=== PATIENT | female | born 1965 | race Caucasian/White ===

== ENCOUNTER 2017-09-19 11:33 | Emergency (ER) | payer OTHER ==
[2017-09-19] MEDS ORDERED: KETOROLAC 30 MG/ML INJ ONE (12:36)
--- NOTE | 2017-09-19 13:13 | ER ---
Nurse's Notes [facility] Name: Chelita Mancilla Age: 52 yrs Sex: Female : 1965 Arrival Date: 09/19/2017 Time: 11:39 Bed 12 Private MD: Kalia Niño H Diagnosis: Sprain of ankle Presentation: 09/19 12:05 Presenting complaint: Patient states: Patient tripped coming down stairs and twisted ae1 left ankle. Patient reports pain and swelling to left ankle. Transition of care: patient was not received from another setting of care. Onset of symptoms was September 19, 2017 at 12:05. 12:05 Method Of Arrival: Ambulatory ae1 12:05 Acuity: HERIBERTO 4 ae1 13:19 Risk Assessment: Do you want to hurt yourself or someone else? Patient reports no ae1 desire to harm self or others. Initial Sepsis Screen: Does the patient meet any 2 criteria? No. Patient's initial sepsis screen is negative. Does the patient have a suspected source of infection? No. Patient's initial sepsis screen is negative. Care prior to arrival: patient applied bandage. Triage Assessment: 12:07 General: Appears in no apparent distress. uncomfortable, slender, well groomed, ae1 Behavior is calm, cooperative. Pain: Complains of pain in right Achilles, right heel, right ankle, medial aspect of right foot, anterior aspect of right ankle and dorsum of right foot Pain currently is 6 out of 10 on a pain scale. Neuro: Level of Consciousness is awake, alert, obeys commands, Oriented to person, place, time, situation. Respiratory: Airway is patent Respiratory effort is even, unlabored. Derm: Skin is pink, warm \T\ dry. Derm: Wound noted left lateral malleolus Other: Small abrasion to the left lateral ankle. Musculoskeletal: Swelling present in left lateral malleolus. Historical: - Allergies: 12:10 No Known Allergies; ae1 - Home Meds: 12:10 Benadryl Oral nightly [Active]; multivitamin oral cap [Active]; melatonin 5 mg Oral tab ae1 nightly [Active]; - PMHx: 12:10 None; ae1 - PSHx: 12:10 Tubal ligation; ae1 - Immunization history:: Last tetanus immunization: up to date Flu vaccine is up to date. - Social history:: Smoking status: Patient/guardian denies using tobacco. - Ebola Screening: : Patient negative for fever greater than or equal to 101.5 degrees Fahrenheit, and additional compatible Ebola Virus Disease symptoms Patient denies exposure to infectious person. Screenin:19 Abuse screen: Denies threats or abuse. Nutritional screening: No deficits noted. ae1 Tuberculosis screening: No symptoms or risk factors identified. Fall Risk Fall in past 12 months (25 points). No secondary diagnosis (0 pts). No IV (0 pts). Ambulatory Aid- None/Bed Rest/Nurse Assist (0 pts). Gait- Normal/Bed Rest/Wheelchair (0 pts) Mental Status- Oriented to own ability (0 pts). Assessment: 12:30 General: Appears in no apparent distress. comfortable, slender, Behavior is calm, rv cooperative. Pain: Complains of pain in lateral aspect of left toes, left fourth toe, left fifth toe, Left fourth toenail and Left fifth toenail. Neuro: Level of Consciousness is awake, alert, obeys commands, Oriented to person, place, time, situation. Cardiovascular: Pulses are all present. Respiratory: Airway is patent. GI: No signs and/or symptoms were reported involving the gastrointestinal system. : No signs and/or symptoms were reported regarding the genitourinary system. EENT: No signs and/or symptoms were reported regarding the EENT system. Derm: No signs and/or symptoms reported regarding the dermatologic system. Musculoskeletal: Swelling present in left fourth toe, left fifth toe, Left fourth toenail and Left fifth toenail. Injury Description: Abrasion sustained to dorsum of left foot. Vital Signs: 12:06 BP 133 / 88; Pulse 72; Resp 18; Temp 98.1(O); Pulse Ox 100% on R/A; Weight 65.77 kg (R);ae1 ED Course: 11:39 Patient arrived in ED. mr 11:39 Kalia Niño DO is Private Physician. mr 12:06 Triage completed. ae1 12:11 Arm band placed on left wrist. ae1 12:25 Jaylon Cabrera MD is Attending Physician. ps1 12:30 Call light in reach. Adult w/ patient. ae1 13:11 Foot Left 3 View XRAY In Process Unspecified. EDMS 13:11 Tib Fib Left XRAY In Process Unspecified. EDMS 13:12 Kalia Niño DO is Referral Physician. ps1 13:36 No provider procedures requiring assistance completed. Patient did not have IV access ae1 during this emergency room visit. Administered Medications: 12:42 Drug: TORadol 30 mg Route: IM; Site: right deltoid; rv 13:36 Follow up: Response: Pain is decreased ae1 Outcome: 13:13 Discharge ordered by . ps1 13:36 Discharged to home ambulatory, with significant other. ae1 13:36 Condition: stable 13:36 Discharge instructions given to patient, Instructed on discharge instructions, follow up and referral plans. medication usage, Demonstrated understanding of instructions. 13:36 Patient left the ED. ae1 Signatures: Dispatcher [employer] EDMS Bryanna Hammer Andrea, RN RN ae1 Jaylon Cabrera MD MD ps1 Sachin Fraga RN RN rv
--- NOTE | 2017-09-19 13:13 | EDPHYS ---
Physician Documentation [facility] Name: Chelita Mancilla Age: 52 yrs Sex: Female : 1965 Arrival Date: 09/19/2017 Time: 11:39 Bed 12 Private MD: Kalia Niño H ED Physician Jaylon Cabrera HPI: 09/19 12:30 This 52 yrs old Female presents to ER via Ambulatory with complaints of Fall ps1 Injury, Ankle Injury. 12:30 pt missed last step and had eversion injury with abrasion of lateral aspect of right ps1 foot. Pain rated as moderate and worse with ambulation and weight bearing. NV intact and has good distal pulses. . Historical: - Allergies: 12:10 No Known Allergies; ae1 - Home Meds: 12:10 Benadryl Oral nightly [Active]; multivitamin oral cap [Active]; melatonin 5 mg Oral tab ae1 nightly [Active]; - PMHx: 12:10 None; ae1 - PSHx: 12:10 Tubal ligation; ae1 - Immunization history:: Last tetanus immunization: up to date Flu vaccine is up to date. - Social history:: Smoking status: Patient/guardian denies using tobacco. - Ebola Screening: : Patient negative for fever greater than or equal to 101.5 degrees Fahrenheit, and additional compatible Ebola Virus Disease symptoms Patient denies exposure to infectious person. ROS: 12:30 Constitutional: Negative for fever, chills, and weight loss, Eyes: Negative for injury, ps1 pain, redness, and discharge, Cardiovascular: Negative for chest pain, palpitations, and edema, Respiratory: Negative for shortness of breath, cough, wheezing, and pleuritic chest pain, Abdomen/GI: Negative for abdominal pain, nausea, vomiting, diarrhea, and constipation, Back: Negative for injury and pain. 12:30 MS/extremity: Positive for contusion, pain, swelling, of the left lateral malleolus. Exam: 12:30 Constitutional: This is a well developed, well nourished patient who is awake, alert, ps1 and in no acute distress. Head/Face: Normocephalic, atraumatic. Eyes: Pupils equal round and reactive to light, extra-ocular motions intact. Lids and lashes normal. Conjunctiva and sclera are non-icteric and not injected. Chest/axilla: Normal chest wall appearance and motion. Nontender with no deformity. No lesions are appreciated. Cardiovascular: Regular rate and rhythm. No gallops, murmurs, or rubs. Normal PMI, no JVD. No pulse deficits. Respiratory: Lungs have equal breath sounds bilaterally, clear to auscultation and percussion. No rales, rhonchi or wheezes noted. No increased work of breathing, no retractions or nasal flaring. 12:30 Musculoskeletal/extremity: Extremities: grossly normal except: noted in the left lateral malleolus: contusion, pain, swelling, abrasion. Vital Signs: 12:06 BP 133 / 88; Pulse 72; Resp 18; Temp 98.1(O); Pulse Ox 100% on R/A; Weight 65.77 kg (R);ae1 MDM: 12:32 Patient medically screened. ps1 13:14 Data reviewed: vital signs, nurses notes, radiologic studies, plain films. ED course: ps1 pain improved. no acute fracture on contemporaneous evaluation of foot and tib/fib xrays. Will have patient follow up with Dr. Niño or Dr. Marino for further diagnostic imaging should pain persist. Home with air splint, anaprox, medrol. Stable for discharge. . 09/19 12:30 Order name: Foot Left 3 View XRAY; Complete Time: 13:34 ps1 09/19 12:30 Order name: Tib Fib Left XRAY ps1 Administered Medications: 12:42 Drug: TORadol 30 mg Route: IM; Site: right deltoid; rv 13:36 Follow up: Response: Pain is decreased ae1 Disposition: 09/19/17 13:13 Discharged to Home. Impression: Sprain of ankle. - Condition is Stable. - Discharge Instructions: Ankle Sprain. - Prescriptions for Anaprox DS 550 mg Oral Tablet - take 1 tablet by ORAL route every 12 hours As needed; 20 tablet. Medrol (Torey) 4 mg Oral Tablets, Dose Pack - take 1 tablet by ORAL route as directed - follow package instructions; 1 packet. - Medication Reconciliation Form, Thank You Letter, Antibiotic Education, Prescription Opioid Use form. - Follow up: Kalia Niño DO; When: As needed; Reason: Further diagnostic work-up, Recheck today's complaints, Continuance of care, Re-evaluation by your physician. Follow up: Emergency Department; When: As needed; Reason: Worsening of condition. - Problem is new. - Symptoms have improved. Signatures: Dispatcher [employer] EDRigoberto Castellano RN RN ae1 Jaylon Cabrera MD MD ps1 Sachin Fraga RN RN rv Corrections: (The following items were deleted from the chart) 13:36 13:13 09/19/2017 13:13 Discharged to Home. Impression: Sprain of ankle. Condition is ae1 Stable. Forms are Medication Reconciliation Form, Thank You Letter, Antibiotic Education, Prescription Opioid Use. Follow up: Kalia Niño; When: As needed; Reason: Further diagnostic work-up, Recheck today's complaints, Continuance of care, Re-evaluation by your physician. Follow up: Emergency Department; When: As needed; Reason: Worsening of condition. Problem is new. Symptoms have improved. ps1
--- NOTE | 2017-09-19 13:19 | RAD REPORT ---
EXAM DESCRIPTION: RAD - Foot Left 3 View - 09/19/2017 1:11 pm CLINICAL HISTORY: Trauma, twisting injury. Ankle pain. COMPARISON: None. FINDINGS: Left tibia/fibula and left foot, multiple projections. Significant soft tissue swelling is noted. Small avulsion fracture may be present distal fibula. Soft tissue swelling is seen along the lateral aspect of the foot. Bony irregularity at the level of the distal fourth and fifth metatarsal necks is noted may be related to mild impaction fractures or prior trauma. Correlation with point tenderness in this location is suggested.
--- NOTE | 2017-09-21 09:27 | RAD REPORT ---
EXAM DESCRIPTION: RAD - Tib Fib Left - 09/19/2017 1:11 pm CLINICAL HISTORY: Trauma, twisting injury. Ankle pain. COMPARISON: None. FINDINGS: Left tibia/fibula and left foot, multiple projections. Significant soft tissue swelling is noted. Small avulsion fracture may be present distal fibula. Soft tissue swelling is seen along the lateral aspect of the foot. Bony irregularity at the level of the distal fourth and fifth metatarsal necks is noted may be related to mild impaction fractures or prior trauma. Correlation with point tenderness in this location is suggested.
== END 2017-09-19 13:36 | disposition home or self-care (01) ==
LOC: ER 11:33
DX: S93.402A Sprain of unspecified ligament of left ankle, initial encounter (principal); W01.0XXA Fall on same level from slipping, tripping and stumbling without subsequent striking against object, initial encounter; Y93.89 Activity, other specified; Y92.9 Unspecified place or not applicable
CPT/HCPCS: 96372; 99283

== ENCOUNTER 2019-03-02 09:40 | Emergency (ER) | payer OTHER ==
[2019-03-02 10:24] LABS: Urine Blood NEGATIVE (NEG); Urine Glucose NEGATIVE (NEG); Urine Protein TRACE (NEG)
[2019-03-02 10:31] LABS: Absolute Lymphocytes (CBC) 0.8 K/uL (0.7-4.9); Basophils % 0.2 % (0-1.3); Hematocrit 36.4 % (36.0-45.0); Lymphocytes % 9.1 % (15.3-44.8); MPV 7.7 fL (7.6-11.3); RBC Red Blood Cell Count 4.13 M/uL (3.86-4.86)
[2019-03-02 10:37] LABS: Urine RBC NONE SEEN /HPF (NONE SEEN)
[2019-03-02 10:38] LABS: Urine Bacteria 20-50 /HPF (<20); Urine Culture Reflex Order REFLEXED
[2019-03-02 10:52] LABS: Potassium 3.5 mmol/L (3.5-5.1)
--- NOTE | 2019-03-02 11:27 | RAD REPORT ---
EXAM DESCRIPTION: CT - Abdomen Pelvis W Contrast - 03/02/2019 11:02 am CLINICAL HISTORY: Abdominal pain COMPARISON: none. TECHNIQUE: Computed axial tomography of the abdomen pelvis was obtained. 100 cc Isovue-300 was admin istered intravenously. Oral contrast was not requested which limits evaluation of bowel. All CT scans are performed using dose optimization technique as appropriate and may include automated exposure control or mA/KV adjustment according to patient size. FINDINGS: The liver, spleen, pancreas, and adrenals appear unremarkable. Small bilateral renal calculi. No hydronephrosis. Small low-density area within the inferior aspect o f the left kidney reaching the capsule. There is stranding within the adjacent left perirenal fat. An abscess is not noted There is no evidence of diverticulitis. IMPRESSION: Mild left pyelonephritis Small bilateral nonobstructing renal calculi
[2019-03-02] MEDS ORDERED: CEFTRIAXONE/SWI 1gm 1 GM/10 ML SYR ONE (11:42)
--- NOTE | 2019-03-02 11:42 | ER ---
Nurse's Notes [facility] Name: Chelita Mancilla Age: 53 yrs Sex: Female : 1965 Arrival Date: 03/02/2019 Time: 09:41 Bed 19 Private MD: Kalia Niño H Diagnosis: Acute tubulo-interstitial nephritis Presentation: 03/02 09:50 Presenting complaint: Patient states: UTI symptoms since Th/Fri, was seen at [facility] yesterday and was started on Macrobid, now having back pain, left flank pain, headache, nausea since last night. Transition of care: patient was not received from another setting of care. Onset of symptoms was February 25, 2019. Risk Assessment: Do you want to hurt yourself or someone else? Patient reports no desire to harm self or others. Initial Sepsis Screen: Does the patient meet any 2 criteria? No. Patient's initial sepsis screen is negative. Does the patient have a suspected source of infection? No. Patient's initial sepsis screen is negative. Care prior to arrival: None. 09:50 Method Of Arrival: Ambulatory 09:50 Acuity: HERIBERTO 3 iw Historical: - Allergies: 10:02 Codeine; iw - Home Meds: 10:02 melatonin 5 mg Oral tab nightly [Active]; Benadryl Oral nightly [Active]; iw - PMHx: 10:02 None; iw - PSHx: 10:02 Tubal ligation; breast augmentation; iw - Immunization history:: Adult Immunizations up to date. - Social history:: Smoking status: Patient/guardian denies using tobacco. - Ebola Screening: : Patient negative for fever greater than or equal to 101.5 degrees Fahrenheit, and additional compatible Ebola Virus Disease symptoms Patient denies exposure to infectious person Patient denies travel to an Ebola-affected area in the 21 days before illness onset No symptoms or risks identified at this time. Screenin:20 Abuse screen: Denies threats or abuse. Denies injuries from another. Nutritional aj1 screening: No deficits noted. Tuberculosis screening: No symptoms or risk factors identified. 12:37 Fall Risk None identified. aj1 Assessment: 10:20 General: Appears in no apparent distress. uncomfortable, Behavior is calm, cooperative, aj1 appropriate for age. Pain: Complains of pain in face and left low back. Neuro: Level of Consciousness is awake, alert, obeys commands, Oriented to person, place, time, situation. Cardiovascular: Patient's skin is warm and dry. Respiratory: Airway is patent Respiratory effort is even, unlabored, Respiratory pattern is regular, symmetrical. GI: No signs and/or symptoms were reported involving the gastrointestinal system. : Reports burning with urination. EENT: No signs and/or symptoms were reported regarding the EENT system. Derm: No signs and/or symptoms reported regarding the dermatologic system. Skin is pink, warm \T\ dry. normal. Musculoskeletal: No signs and/or symptoms reported regarding the musculoskeletal system. Circulation, motion, and sensation intact. 11:20 Reassessment: Patient appears in no apparent distress at this time. No changes from aj1 previously documented assessment. Patient and/or family updated on plan of care and expected duration. Pain level reassessed. Patient is alert, oriented x 3, equal unlabored respirations, skin warm/dry/pink. 12:36 Reassessment: Patient appears in no apparent distress at this time. No changes from aj1 previously documented assessment. Patient and/or family updated on plan of care and expected duration. Pain level reassessed. Patient is alert, oriented x 3, equal unlabored respirations, skin warm/dry/pink. Vital Signs: 10:02 BP 129 / 81; Pulse 106; Resp 16 S; Temp 100.2(O); Pulse Ox 100% on R/A; Weight 63.5 kg; iw Height 5 ft. 8 in. (172.72 cm); Pain 2/10; 10:41 BP 116 / 68; Pulse 97; Resp 16; Temp 99.7(O); Pulse Ox 100% on R/A; mh5 12:36 BP 116 / 73; Pulse 92; Resp 18; Pulse Ox 97% on R/A; aj1 10:02 Body Mass Index 21.29 (63.50 kg, 172.72 cm) iw ED Course: 09:41 Patient arrived in ED. as 09:41 Kalia Niño DO is Private Physician. as 09:46 Beth Lujan FNP-C [facility]. kb 09:46 Howard Schumacher MD is Attending Physician. kb 09:54 Triage completed. iw 10:02 Arm band placed on. 10:14 Urine --Ancillary (enter results) Sent. [facility] 10:15 Patient has correct armband on for positive identification. Bed in low position. Call [facility] light in reach. Side rails up X 1. Warm blanket given. Pulse ox on. NIBP on. 10:15 Urine Dipstick--Ancillary (enter results) Sent. [facility] 10:15 Urine Microscopic Only Sent. [facility] 10:15 Urine collected: clean catch specimen, clear. [facility] 10:18 Initial lab(s) drawn, by mi, sent to lab. Inserted saline lock: 22 gauge in right aj1 antecubital area, using aseptic technique. Blood collected. 10:20 No provider procedures requiring assistance completed. aj1 11:07 CT Abd/Pelvis - IV Contrast Only In Process Unspecified. EDMS 12:37 IV discontinued, intact, bleeding controlled, No redness/swelling at site. Pressure aj1 dressing applied. Administered Medications: 12:00 Drug: Rocephin 1 grams Route: IV; Rate: calculated rate; Site: right antecubital; aj1 12:39 Follow up: Response: No adverse reaction; IV Status: Completed infusion; IV Intake: [id number] Intake: 12:39 IV: 10ml; Total: 10ml. aj1 Outcome: 11:41 Discharge ordered by . kb 12:37 Discharged to home ambulatory. aj1 12:37 Condition: good 12:37 Discharge instructions given to patient, Instructed on discharge instructions, follow up and referral plans. medication usage, Demonstrated understanding of instructions, follow-up care, medications, Prescriptions given X 1. 12:40 Patient left the ED. aj1 Signatures: Dispatcher [employer] EDMS Beth Lujan, PERFECT BINDER FEEDER OFFBEARER-C PERFECT BINDER FEEDER OFFBEARER-Ckb Maia Andrews RN RN aj1 Maribel Bowers as Tamy Greer RN RN Pauline Obrien, RN RN Bryanna Croft [facility] Corrections: (The following items were deleted from the chart) 18:55 09:54 Pauline Obrien, RN is Primary Nurse. homer coronel
--- NOTE | 2019-03-02 11:42 | EDPHYS ---
Physician Documentation [facility] Name: Chelita Mancilla Age: 53 yrs Sex: Female : 1965 Arrival Date: 03/02/2019 Time: 09:41 Bed 19 Private MD: Kalia Niño H ED Physician Howard Schumacher HPI: 03/02 11:40 This 53 yrs old Female presents to ER via Ambulatory with complaints of kb Urinary Problem, Back Pain, Headache. 11:40 The patient complains of pain in the left flank. The pain does not radiate. Onset: The kb symptoms/episode began/occurred today. Modifying factors: The symptoms are alleviated by nothing. the symptoms are aggravated by nothing. Associated signs and symptoms: Pertinent positives: dysuria, fever. Severity of pain: At its worst the pain was moderate in the emergency department the pain is unchanged. The patient has not experienced similar symptoms in the past. The patient has been recently seen by a physician:. Pt reports she has had UTI symptoms for a week, went to UC yesterday and was started on macrobid for UTI. Today started having left flank pain, fever and chills.. Historical: - Allergies: 10:02 Codeine; iw - Home Meds: 10:02 melatonin 5 mg Oral tab nightly [Active]; Benadryl Oral nightly [Active]; iw - PMHx: 10:02 None; iw - PSHx: 10:02 Tubal ligation; breast augmentation; iw - Immunization history:: Adult Immunizations up to date. - Social history:: Smoking status: Patient/guardian denies using tobacco. - Ebola Screening: : Patient negative for fever greater than or equal to 101.5 degrees Fahrenheit, and additional compatible Ebola Virus Disease symptoms Patient denies exposure to infectious person Patient denies travel to an Ebola-affected area in the 21 days before illness onset No symptoms or risks identified at this time. ROS: 11:15 ENT: Negative for injury, pain, and discharge, Neck: Negative for injury, pain, and kb swelling, Cardiovascular: Negative for chest pain, palpitations, and edema, Respiratory: Negative for shortness of breath, cough, wheezing, and pleuritic chest pain, Abdomen/GI: Negative for abdominal pain, nausea, vomiting, diarrhea, and constipation, MS/Extremity: Negative for injury and deformity, Skin: Negative for injury, rash, and discoloration, Neuro: Negative for headache, weakness, numbness, tingling, and seizure. 11:15 Constitutional: 11:15 Constitutional: Positive for chills, fever. 11:39 : Positive for flank pain, burning with urination. kb Exam: 11:39 Constitutional: This is a well developed, well nourished patient who is awake, alert, kb and in no acute distress. Head/Face: Normocephalic, atraumatic. ENT: Nares patent. No nasal discharge, no septal abnormalities noted. Tympanic membranes are normal and external auditory canals are clear. Oropharynx with no redness, swelling, or masses, exudates, or evidence of obstruction, uvula midline. Mucous membranes moist. Neck: Trachea midline, no thyromegaly or masses palpated, and no cervical lymphadenopathy. Supple, full range of motion without nuchal rigidity, or vertebral point tenderness. No Meningismus. Chest/axilla: Normal chest wall appearance and motion. Nontender with no deformity. No lesions are appreciated. Cardiovascular: Regular rate and rhythm with a normal S1 and S2. No gallops, murmurs, or rubs. Normal PMI, no JVD. No pulse deficits. Respiratory: Lungs have equal breath sounds bilaterally, clear to auscultation and percussion. No rales, rhonchi or wheezes noted. No increased work of breathing, no retractions or nasal flaring. Abdomen/GI: Soft, non-tender, with normal bowel sounds. No distension or tympany. No guarding or rebound. No evidence of tenderness throughout. Skin: Warm, dry with normal turgor. Normal color with no rashes, no lesions, and no evidence of cellulitis. MS/ Extremity: Pulses equal, no cyanosis. Neurovascular intact. Full, normal range of motion. Neuro: Awake and alert, GCS 15, oriented to person, place, time, and situation. Cranial nerves II-XII grossly intact. Motor strength 5/5 in all extremities. Sensory grossly intact. Cerebellar exam normal. Normal gait. 11:39 Back: CVA tenderness, that is mild, is noted on the left. Vital Signs: 10:02 BP 129 / 81; Pulse 106; Resp 16 S; Temp 100.2(O); Pulse Ox 100% on R/A; Weight 63.5 kg; iw Height 5 ft. 8 in. (172.72 cm); Pain 2/10; 10:41 BP 116 / 68; Pulse 97; Resp 16; Temp 99.7(O); Pulse Ox 100% on R/A; mh5 12:36 BP 116 / 73; Pulse 92; Resp 18; Pulse Ox 97% on R/A; aj1 10:02 Body Mass Index 21.29 (63.50 kg, 172.72 cm) iw MDM: 09:46 Patient medically screened. kb 11:39 Data reviewed: vital signs, nurses notes. Data interpreted: Pulse oximetry: on room air kb is 100 %. Interpretation: normal. Counseling: I had a detailed discussion with the patient and/or guardian regarding: the historical points, exam findings, and any diagnostic results supporting the discharge/admit diagnosis, lab results, radiology results, the need for outpatient follow up, a family practitioner, to return to the emergency department if symptoms worsen or persist or if there are any questions or concerns that arise at home. 03/02 09:56 Order name: Urine Microscopic Only; Complete Time: 10:44 kb 03/02 10:03 Order name: CBC with Diff kb 03/02 10:03 Order name: Basic Metabolic Panel; Complete Time: 10:57 kb 03/02 10:10 Order name: Urine Dipstick--Ancillary (enter results); Complete Time: 10:26 bd 03/02 10:12 Order name: Urine --Ancillary (enter results) 03/02 10:41 Order name: Urine Culture EDWI 03/02 09:46 Order name: Urine Dipstick-Ancillary (obtain specimen); Complete Time: 10:15 kb 03/02 10:03 Order name: IV Start; Complete Time: 10:17 kb 03/02 10:03 Order name: CT Abd/Pelvis - IV Contrast Only; Complete Time: 11:34 kb 03/02 10:48 Order name: CBC Smear Scan EDWI Administered Medications: 12:00 Drug: Rocephin 1 grams Route: IV; Rate: calculated rate; Site: right antecubital; aj1 12:39 Follow up: Response: No adverse reaction; IV Status: Completed infusion; IV Intake: [id number] Disposition: 15:01 Co-signature as Attending Physician, Howard Schumacher MD I agree with the assessment and kdr plan of care. Disposition: 03/02/19 11:41 Discharged to Home. Impression: Acute tubulo-interstitial nephritis. - Condition is Stable. - Discharge Instructions: Pyelonephritis, Adult, [id number]. - Prescriptions for Keflex 500 mg Oral Capsule - take 1 capsule by ORAL route every 8 hours for 10 days; 30 capsule. - Medication Reconciliation Form, Thank You Letter, Antibiotic Education, Prescription Opioid Use form. - Follow up: Emergency Department; When: As needed; Reason: Worsening of condition. Follow up: Private Physician; When: 2 - 3 days; Reason: Recheck today's complaints, Continuance of care, Re-evaluation by your physician. Signatures: Dispatcher [employer] EDMS Beth Lujan, OBIEE CONSULTANT-C OBIEE CONSULTANT-Maia Boyd RN RN aj1 Howard Schumacher MD MD kdr Tamy Greer RN RN iw Corrections: (The following items were deleted from the chart) 11:39 11:15 Constitutional: kb kb 12:40 11:41 03/02/2019 11:41 Discharged to Home. Impression: Acute tubulo-interstitial aj1 nephritis. Condition is Stable. Forms are Medication Reconciliation Form, Thank You Letter, Antibiotic Education, Prescription Opioid Use. Follow up: Emergency Department; When: As needed; Reason: Worsening of condition. Follow up: Private Physician; When: 2 - 3 days; Reason: Recheck today's complaints, Continuance of care, Re-evaluation by your physician. kb
[2019-03-02 12:40] LABS: Blood Morphology Comment NOT SEEN (NOT SEEN); Platelet Estimate ADEQ; Urine White Blood Cell Casts OK
[2019-03-02 12:49] VITALS: TEMP 99.7
[2019-03-02 12:51] VITALS: BP 116/73; O2SAT 97
== END 2019-03-02 12:40 | disposition home or self-care (01) ==
LOC: ER 09:40
DX: N10 Acute pyelonephritis (principal); Z88.5 Allergy status to narcotic agent; Z98.82 Breast implant status
CPT/HCPCS: 96365; 87088; 85025; 87086; 80048; 36415; 81025; 74177; 99284; Q9967; J0696; 81003; 81015

== ENCOUNTER 2020-06-05 14:10 | Emergency (ER) | payer SELFPAY ==
--- NOTE | 2020-06-05 17:30 | ER ---
Nurse's Notes [facility] Name: Chelita Mancilla Age: 55 yrs Sex: Female : 1965 Arrival Date: 06/05/2020 Time: 14:13 Bed Waiting Private MD: Diagnosis: Presentation: 06/05 14:22 Chief complaint: Patient states: 1. Epigastric pain since 1100 today. 1 episode of N/V ll1 on the way here. No fever. 2. Slight cough and SURAEZ for 1 day. Coronavirus screen: Client denies travel out of the [place] in the last 14 days. congestion, headache, nausea, vomiting. Client presents with at least one sign or symptom that may indicate coronavirus-19. Standard/surgical mask placed on the client. Ebola Screen: Patient denies travel to an Ebola-affected area in the 21 days before illness onset. Initial Sepsis Screen: Does the patient meet any 2 criteria? HR > 90 bpm. No. Patient's initial sepsis screen is negative. Does the patient have a suspected source of infection? Yes: Acute abdominal pain. Risk Assessment: Do you want to hurt yourself or someone else? Patient reports no desire to harm self or others. Onset of symptoms was June 05, 2020. 14:22 Method Of Arrival: Ambulatory ll1 14:22 Acuity: HERIBERTO 3 ll1 Historical: - Allergies: 14:25 Codeine; ll1 - PMHx: 14:25 None; ll1 - PSHx: 14:25 Tubal ligation; breast augmentation; ll1 - Immunization history:: Flu vaccine is not up to date. - Social history:: Smoking status: Patient denies any tobacco usage or history of. Vital Signs: 14:22 BP 140 / 75; Pulse 96; Resp 16; Temp 97.9; Pulse Ox 100% ; Weight 63.5 kg; Height 5 ft. ll1 8 in. (172.72 cm); Pain 6/10; 14:22 Body Mass Index 21.29 (63.50 kg, 172.72 cm) ll1 ED Course: 14:13 Patient arrived in ED. ds1 14:24 Triage completed. ll1 14:25 Arm band placed on. ll1 Administered Medications: No medications were administered Outcome: 17:30 Patient left the ED. hb Signatures: Karina Shelby ds1 Nissa Temple, RN RN hb Nely Klein, RN RN ll1
[2020-06-05 17:46] VITALS: BP 140/75; TEMP 97.9; O2SAT 100
--- OUTSIDE RECORDS SUMMARY | 2020-06-06 10:49 | XMS REPORT | Continuity of Care Document ---
:1965 Author Organization [facility] t Address [address] [place] [place] [address] Care Team Providers Name Role Phone Kathleen Cardona Attending Clinician Problems This patient has no known problems. Allergies, Adverse Reactions, Alerts This patient has no known allergies or adverse reactions. Medications This patient has no known medications. Procedures This patient has no known procedures. Encounters Start End Encounter Admission Attending Care Care Encounter Source Date/Time Date/Time Type Type Clinicians Facility Department ID 2020-06-05 2020-06-05 LAURA Estevez [id number] 17:43:00 21:21:00 Janis Renteria [id number] [place] [id number] [place] [id number] Results This patient has no known results.
== END 2020-06-05 17:30 | disposition left against medical advice (07) ==
LOC: ER 14:10
DX: Z02.9 Encounter for administrative examinations, unspecified (principal)
CPT/HCPCS: 99281